=== PATIENT | male | born 2000 | race Caucasian/White ===

== ENCOUNTER 2021-05-01 13:49 | Emergency (ER) | payer OTHER, SELFPAY ==
[2021-05-01 16:12] VITALS: BP 119/76; PULSE 128; RESP 20; TEMP 37.5; O2SAT 99
[2021-05-01 19:52] VITALS: BP 116/74; PULSE 119; RESP 16; TEMP 38.1; O2SAT 99
--- NOTE | 2021-05-01 19:58 | ED_ITS ---
HPI - Allergic Reaction General Chief complaint: Allergic Reaction Stated complaint: allergic reaction swollen lips SOB Time Seen by Provider: 05/01/21 19:57 Source: patient Mode of arrival: ambulatory Limitations: no limitations History of Present Illness HPI narrative: 21-year-old male came in for evaluation of lip swelling and eye discharge. Notice yesterday eye redness bilaterally, bilateral eye discharge, patient used an old left over antibiotic eyedrops ( neomycin), next day patient started to notice swelling of the labs, patient declined any further tetanus of breath, no throat swelling. Patient still having conjunctiva redness and discharge. Patient had Pfizer vaccinationx2. patient declined Viral symptoms. Related Data Previous Rx's Medication Instructions Recorded ciprofloxacin HCl 0.3 % eye drops See Rx Instructions .ROUTE 05/01/21 .COMPLEX #10 ml Allergies Allergy/AdvReac Type Severity Reaction Status Date / Time No Known Allergies Allergy Verified 05/01/21 19:57 Review of Systems Review of Systems: All other systems are reviewed and are negative Constitutional: Reports as per HPI and Reports no additional constitutional complaints Eyes: Reports as per HPI and Reports no additional eye complaints Reports system reviewed and no additional complaints, except as documented Cardiovascular: Reports as per HPI and Reports no additional cardiovascular complaints Respiratory: Reports as per HPI and Reports no additional respiratory complaints Gastrointestinal: Reports as per HPI and Reports no additional gastrointestinal complaints Genitourinary: Reports no additional female genitourinary complaints Musculoskeletal: Reports no additional musculoskeletal complaints Skin/Breast: Reports system reviewed and no additional complaints, except as docu Psychiatric: Reports no additional psychiatric complaints Endocrine: Reports no additional endocrine complaints Hematologic/Lymphatic: Reports no additional hematologic/lymphatic complaints Allergic/Immunologic: Reports no additional allergic/immunologic complaints Reports system reviewed and no additional complaints, except as documented and Reports Abnormal speech present [facility] Past Medical History Medical History No known health problems Social History Social History Advance Directives: No Advance Directives Information Provided: No Physical Exam Vital Signs: Vital Signs: Last Vital Signs Temp 100.5 F H 05/01/21 19:52 Pulse 119 H 05/01/21 19:52 Resp 16 05/01/21 19:52 BP 116/74 05/01/21 19:52 Pulse Ox 99 05/01/21 19:52 BMI result Body Mass Index 20.0 vital signs have been reviewed as appeared to be correct. Blood pressure normal. Heart rate normal. Respiration rate normal. Temperature : Low-grade fever. Oxygen saturation normal. Appearance: Alert. Oriented X3. No acute distress. Head: Normal external exam. Normocephalic. Atraumatic. No Diaz signs noted. No raccoon eyes noted Eyes: bilateral conjunctiva injection, with greenish discharge,PERRLA. ENT: TM's Normal. Pharynx normal. Uvula midline. Moist mucous membranes. No trismus noted. No drooling noted. No muffled voice noted. Neck: Normal inspection. Neck supple. FROM. No adenopathy. Thyroid Normal. No meningeal signs. No neck mass noted. CVS: Normal heart rate and rhythm. Heart sound normal. No murmurs noted. Pulses normal throughout. Respiratory: No respiratory distress. Painless inspiration. Breath sounds normal. No wheezes/rales/rhonchi noted. Chest nontender. No accessory muscle usage noted or decreased air movement noted. Abdomen: Soft and nontender. Bowel sounds normal in all 4 quadrants. No distention noted. No organomegaly noted. No visible injury noted. Back: No CVA tenderness. Full range of motion noted. Skin: Skin warm and dry. Normal skin color. Normal skin turgor. No rashes/lesions/lacerations noted. Extremities: No lower extremity edema. Extremities exhibit normal range of motion. Extremities nontender. Neuro: Oriented X 3. Cranial nerve exam: II-XII are grossly intact No motor deficit. No sensory deficit. Reflexes normal. Course Course Course Narrative: ASSESSMENT AND PLAN. Bilateral bacterial conjunctivitis will change neomycin to Cipro eyedrops,. Very mild lip swelling subjectively not appreciated on the physical exam, otherwise patent airway, will give the patient 1 dose of Benadryl, prednisone in the emergency department. Patient noted to be tachycardic with low-grade fever but patient declined viral symptoms and patient declined blood workup or be checked for COVID infection. Discharge Plan Discharge Clinical Impression: Conjunctivitis Qualifiers: Conjunctivitis type: acute Acute conjunctivitis type: bacterial Laterality: bilateral Qualified Code(s): H10.33 - Unspecified acute conjunctivitis, bilateral Patient Disposition: Home, Self-Care Instructions: Conjunctivitis (ED) Additional Instructions: new found to have low-grade fever today, Keep monitoring your temperature and if exceed 101 , or feel sick seek medical attention. Prescriptions: New ciprofloxacin HCl 0.3 % drops See Rx Instructions .ROUTE .COMPLEX Qty: 10 RF: 0 Referrals: Physician,None [Primary Care Provider] - 10 days
[2021-05-01] MEDS: diphenhydrAMINE HCL 25 MG TABLET PO (20:30)
[2021-05-01] MEDS: predniSONE 20 MG TABLET 40 MG PO (20:30)
== END 2021-05-01 20:33 | disposition home or self-care (01) ==
PROVIDERS: Emergency Provider Emergency Medicine
DX: H10.33 Unspecified acute conjunctivitis, bilateral (principal)
CPT/HCPCS: 99283; 99284; Q0163